=== PATIENT | male | born 1970 | race Caucasian/White ===

== ENCOUNTER 2016-10-02 09:57 | Emergency (ER) | payer BC | END 2016-10-02 12:11 | disposition home or self-care (01) | LOC: D.ER 09:57 | DX: L73.9 Follicular disorder, unspecified (principal) ==

== ENCOUNTER 2017-01-07 06:15 | Day surgery (SDC) | payer BC ==
[~2017-01-07 06:15] MED LIST: DUEXIS 800-26.1 EACH PO; HYDROCODONE-APA1 TAB PO; ROBAXIN500 MG PO
[2017-01-07] MEDS ORDERED: HYDROCODONE-APA1 TAB PO (11:58)
== END 2017-01-07 13:15 | disposition home or self-care (01) ==
LOC: D.OPS 06:15
DX: M75.101 Unspecified rotator cuff tear or rupture of right shoulder, not specified as traumatic (principal); M19.011 Primary osteoarthritis, right shoulder; M75.41 Impingement syndrome of right shoulder; M75.21 Bicipital tendinitis, right shoulder

== ENCOUNTER 2018-09-28 06:01 | Day surgery (SDC) | payer OTHER ==
[~2018-09-28] VITALS: Ht 170.2 cm; Wt 104.8 kg
[~2018-09-28 06:01] MED LIST changes: +PRINIVIL20 MG PO; +REVATIO20 MG PO; +VITAMIN D5000 UNIT PO
[2018-09-28 06:32] LABS: BASOPHILS 0.3 % (0-2); EOSINOPHILS 2.6 % (0-7); HEMATOCRIT 43.1 % (42.0-54.0); IMMATURE GRANULOCYTES 0.1 % (0-5); LYMPHOCYTES 36.7 % (15-50); MCH 31.2 pg (26.0-34.0); MCHC 34.8 g/dL (31.0-37.0); MCV 89.6 fL (80.0-100.0); MEAN PLATELET VOLUME 9.8 fL (7.4-10.4); MONOCYTES 6.4 % (2-11); NEUTROPHILS 53.9 % (40-80); PLATELET COUNT 325 10x3/uL (130-400); RBC 4.81 10x6/uL (4.20-6.10)
[2018-09-28 06:50] LABS: CALC OSMOLALITY 280 mosm/kg (275-300); CALCIUM 8.2 mg/dL (8.5-10.1); CARBON DIOXIDE 16.5 mmol/L (21.0-32.0); CHLORIDE - SERUM 103 mmol/L (98-107); CREATININE - SERUM 1.1 mg/dL (0.6-1.3); GLUCOSE 127 mg/dL (74-106); POTASSIUM - SERUM 4.3 mmol/L (3.5-5.1); SODIUM 138 mmol/L (136-145); UREA NITROGEN 22 mg/dL (7-18); eGFR NON AFRICAN AMERICAN 76 mL/min (90-120)
[2018-09-28] MEDS ORDERED: REVATIO20 MG PO (07:02)
[2018-09-28 07:05] VITALS: BP 129/79; Ht 170.2 cm; Wt 104.8 kg
[2018-09-28] MEDS ORDERED: NORCO 10-325 TA1 TAB PO (09:43)
--- NOTE | 2018-09-28 11:31 | NUR ---
1115 PT STOOD AT SIDE OF BED AND VOIDED WITHOUT DIFFICULTY. BACK IN BED.
--- NOTE | 2018-09-28 13:56 | NUR ---
1145 PT TOLERATED FULL LIQUID DIET WITH NO C/O NAUSEA OR VOMITING. 1225 DC'D IV. CATHETER INTACT. NO BLEEDING AT SITE AFTER HOLDING PRESSURE. BANDAID APPLIED. 1250 DISCHARGE INSTRUCTIONS GIVEN AND QUESTIONS ANSWERED. PT STATES HE IS READY TO GO HOME. PT TRANSFERRED TO CAR VIA .
--- NOTE | 2018-09-29 14:05 | OP ---
PATIENT NAME: ILANA BAEZA MEDICAL RECORD: [id number] :70 LOCATION:[facility] ADMISSION DATE: SURGEON: RASHI HORTON MD DATE OF OPERATION: 09/28/2018 PREOPERATIVE DIAGNOSES: 1. Ventral hernia. 2. Hypertension. 3. Asthma. POSTOPERATIVE DIAGNOSES: 1. Ventral hernia. 2. Hypertension. 3. Asthma. PROCEDURE: Ventral hernia repair with 6.4-cm Ventrio mesh. SURGEON: Rashi Horton MD REPORT OF PROCEDURE: The patient's abdomen was prepped and draped in sterile fashion. A semicircular incision was made on the inferior aspect of the umbilicus. Electrocautery was used to dissect through the subcutaneous tissues and we came through the umbilical stalk. Once we passed the umbilical stalk and elevated the umbilicus, we encountered a large hernia sac that was fat containing. This hernia sac was dissected down to the fascial edges and the fatty tissue within it was pushed back down into the abdominal cavity. We freed up the surfaces of the fascia above and below. At this point, we measured out the defect a little over 3 cm in greatest diameter. A 6.4-cm Ventrio ST mesh was inserted in a subfascial plane and sutured down on all 4 sides using interrupted #0 Prolenes. The mesh appeared to rest in good position near the abdominal wall. We irrigated out the wound and assured there was no sign of any bleeding. The fascia was then closed transversely overlying the mesh using running #0 Vicryls. The umbilicus was tacked down to the fascia using single interrupted 3-0 Vicryl. The subcutaneous tissues were reapproximated with interrupted 3-0 Vicryl and the skin was closed with running subcutaneous 5-0 Monocryl. A total of 10 mL of 0.25% Marcaine with epinephrine was infused into the surrounding tissues and the wound was dressed appropriately. COMPLICATIONS: None. CONDITION: Stable. ANESTHESIA: General endotracheal and local. BLOOD LOSS: Minimal. TRANSINT:[id number] Voice Confirmation ID: [id number] DOCUMENT ID: [id number] OPERATIVE REPORT [id number] FELISHAILANA VILLARREAL RASHI LIGHT MD at 1405 CC: GREGOR GAITAN [id number] DICTATION DATE: 09/28/18 0947 RESOLUTION MANAGER: 09/28/18 1121 [facility] 09/28/18 [facility] [address] [place] [address]
== END 2018-09-28 12:50 | disposition home or self-care (01) ==
LOC: D.PAN 06:01 → D.OPS 09:00 → D.PAN 09:00
PROVIDERS: Surgery
DX: K43.9 Ventral hernia without obstruction or gangrene (principal); I10 Essential (primary) hypertension; J45.909 Unspecified asthma, uncomplicated

== ENCOUNTER → 2019-08-31 09:13 | Outpatient (CLI) | payer OTHER ==
[2018-09-28 07:05] VITALS: BMI 36.2
[~2019-08-31 09:13] MED LIST changes: +NORCO 10-325 TA1 TAB PO
--- NOTE | 2019-09-06 11:25 | EC ---
PATIENT:ILANA BAEZA DATE OF SERVICE: 08/31/19 SEX: M MEDICAL RECORD: [id number] DATE OF : 70 [facility] AGE [facility] PAT[facility]: 48 ADMISSION DATE: 08/31/19 REFERRING PHYSICIAN: INTERPRETING PHYSICIAN: CHIQUIS ARCHIBALD MD ECHOCARDIOGRAM REPORT ECHO CHARGES 4 ECHO COMPLETE Date: 08/31/19 CLINICAL DIAGNOSIS: ABNORMAL EKG H/O HTN/CAD ECHOCARDIOGRAPHIC MEASUREMENTS (adult normal given) AC root (d.<3.7cm) 3.3 cm LV Septum d (<1.2 cm> 1.2 cm Valve Excursion 2.2 cm LV Septum (systole) 1.7 cm Left Atria (s.<4.0cm> 4.9 cm LVPW d(<1.2cm) 1.3 cm RV (d.<2.3cm) 2.8 cm LVPW (sytole) 1.8 cm LV diastole(<5.6CM) 5.6 cm MV E-F(>70mm/sec) cm LV systole 2.9 cm LVOT Diameter 2.1 cm MV exc.(>10mm) cm Est.ejection fraction (50-75%) % DOPPLER: LVIT cm/sec A 57.0 cm/sec E 81.0 cm/sec LA cm/sec RVSP 19.4 mmHg LVOT 87.0 cm/sec AOP1/2T m/s Asc. Ao 126 cm/sec RVOT 64.0 cm/sec RA cm/sec PA 107 cm/sec AV Gradient Peak 6.4 mmHg AV Mean 3.6 mmHg AV Area 2.1 cm MV Gradient Peak 3.2 mmHg MV Mean 0.94 mmHg MV Area cm COMMENTS: OP - HC Mink Farmer: 1 [place] Forensic Computer Examiner: 3 Dr. Shea TAPE# PACS Pericardial Effusion N DATE OF SERVICE: Adequate 2D, color flow, spectral Doppler, and M-mode. Borderline LVH. LV internal dimensions are normal. Wall motion is normal. EF is greater than or equal to 55%. Aortic valve score is tricuspid. No evidence of stenosis by Doppler interrogation. Left atrium is dilated at 4.9 cm. Mitral valve shows no prolapse. Mild MR. Right-sided chambers are grossly normal. Trace TR. ECHOCARDIOGRAM REPORT [id number] ILANA BAEZA TRANSINT:[id number] Voice Confirmation ID: [id number] DOCUMENT ID: [id number] CHIQUIS ARCHIBALD MD at 1125 CC: [id number] DICTATION DATE: 09/04/19950 BREAD STACKER: 09/04/19 1037 DEP CLI 08/31/19 [id number] [place] [address]
== END | disposition home or self-care (01) ==
LOC: D.HCCECHO 09:13
PROVIDERS: ATTEND Internal Medicine Interventional Cardiology
DX: R01.1 Cardiac murmur, unspecified (principal)